=== PATIENT | male | born 1975 | race Caucasian/White ===

== ENCOUNTER 2017-08-02 09:18 | Emergency (ER) | payer OTHER ==
[~2017-08-02] VITALS: Ht 175.3 cm; Wt 76.0 kg
[~2017-08-02 09:18] MED LIST: PLV75 PO
[2017-08-02 09:20] VITALS: PULSE 85; TEMP 36.9; O2SAT 97; Ht 175.3 cm; Wt 76.0 kg
[2017-08-02] MEDS ORDERED: KETOROLAC TROMETHAMINE 60 MG/2 ML VIAL IM STA (10:39)
[2017-08-02] MEDS ORDERED: CYCLOBENZAPRINE HCL 10 MG TAB PO STA (10:39)
[2017-08-02] MEDS ORDERED: OXYCODONE HCL IR 5 MG TAB (IMMEDIATE RELEASE) PO STA (10:39)
[2017-08-02] MEDS ORDERED: METH4PAK PO ×2 (10:46→11:17)
[2017-08-02] MEDS ORDERED: CYCL5TAB PO ×2 (10:46→11:17)
--- NOTE | 2017-08-02 10:48 | EMERGENCY ROOM VISIT NOTE ---
ED Visit Note First contact with patient: 10:23 CHIEF COMPLAINT: Low back pain HISTORY OF PRESENT ILLNESS: This 42-year-old male patient presents to the emergency department, ambulatory, via POV, complaining of pain in the low back which began yesterday evening. The patient states he was bending over to scrub the toilet, he felt a pinch in the back. He states that this point, he knew he was going to be in pain, but kept going and continued working. He states any time he got home, he was having difficulty walking. He did use a heating pad last night, and states he is uncertain if this helped or made things worse. He was having difficulty getting out of bed. He does report a history of chronic low back pain, does have "disc problems". Patient states he was seeing Dr. Richard, but has not seen him in approximately one year. He was on injections, which she states did help. The pain is now constant and worse with movement. The patient notes the pain as sharp and a 9/10. The patient has taken 4 OTC Aleve without relief of the pain. The patient denies any loss of control of their bowel or bladder functions. There has been no leg numbness or weakness, and no change in sensation. No nausea or vomiting or abdominal pain. No chest pain or shortness of breath. The patient has had prior back surgery. No dysuria or increased urinary frequency. REVIEW OF SYSTEMS: A 10 system review of systems was performed with positives and pertinent negatives listed in the history of present illness. All other systems were reviewed and are negative. ALLERGIES: Aspirin MEDICATIONS: None PMH: CVA, chronic back pain SOCIAL HISTORY: The patient lives locally with family. He denies drug, alcohol , tobacco use. PHYSICAL EXAM: VITALS: Vitals are noted on the nurse's note and reviewed by myself. Vital signs stable. GENERAL: This is a 42 year old white male, in no acute distress but in obvious pain, nondiaphoretic, well-developed well-nourished. SKIN: The skin was without rashes, erythema, edema, or bruising. Capillary refill less than 2 seconds. NECK: Supple without nuchal rigidity. No cervical spine tenderness. No paraspinous muscle tenderness. HEART: Regular rate and rhythm without murmurs gallops or rubs. LUNGS: Clear to auscultation bilaterally without wheezes, rales or rhonchi. ABDOMEN: Positive bowel sounds x 4. Normal tympanic percussion. Soft, nontender, without masses or organomegaly. Boyer sign negative. MUSCULOSKELETAL: No muscle atrophy, erythema, or edema noted of the back. There is no tenderness over the lumbar spinous processes. There is moderate tenderness over the paraspinous muscles bilaterally. There is no tenderness over the thoracic spine or paraspinous muscles. There are muscle spasms present. The patient is slow to move around with maximum tenderness with any position changes. He is unable to sit upright. Positive straight leg raise test bilaterally. NEURO: Patient was alert and oriented to person place and time. Normal sensation to light and sharp touch. Deep tendon reflexes 2+ in the lower extremities. Dorsalis pedis pulse 2+ bilaterally. Strength 5/5 and equal in the bilateral lower extremities. EMERGENCY DEPARTMENT COURSE: The patient was seen and evaluated as above. He presents today complaining of significant back pain. There was no "Injury" however the pain did begin while bending over, which has happened to him before. He reports a history of "disc problems" and states he was seeing Dr. Richard for injections, which were helpful. The patient has not had a flare-up of his chronic pain in quite some time. He was given cyclobenzaprine, OxyIR, and Toradol in the ED for his symptoms. He will be discharged with cyclobenzaprine and Medrol Dosepak. I do not feel imaging is necessary at this time, as he did not obtain a specific injury. The patient is in agreement with this plan. He was feeling better at discharge, however, not 100%. Discharge instructions were reviewed and the patient was discharged home in good condition. I attest that I have personally reviewed the patient's current medication list. Patient was found to have normal blood pressure on screening and does not require follow-up. DIFFERENTIAL DIAGNOSIS: Etiologies such as lumbago, sciatica, cauda equina, epidural abscess, osteomyelitis, fracture, aortic disease, metastatic disease, infection, renal colic, gastrointestinal, as well as others were entertained. DIAGNOSIS: Lumbar strain with sciatica Problem List Medical Problems: (1) Chronic back pain Status: Chronic (2) Hepatitis C Status: Chronic Surgical Problems: (1) H/O hemorrhoidectomy Status: Chronic (2) Hx of appendectomy Status: Chronic Current/Historical Medications Scheduled Cyclobenzaprine Hcl (Flexeril), 5 MG PO TID Methylprednisolone (Medrol Dosepak), 0 PO DAILY Allergies Coded Allergies: Aspirin (Verified Adverse Reaction, Intermediate, GI intolerance, 07/16/16 ) INTOLERENCE Vital Signs Date Time Temp Pulse Resp B/P (MAP) Pulse Ox O2 Delivery O2 Flow Rate FiO2 08/02/17 11:05 130/88 08/02/17 09:20 36.9 85 20 121/74 97 Room Air Medications Administered Medications (Trade) Dose Ordered Sig/Damian Route Start Time Stop Time Status Last Admin Dose Admin Ketorolac Tromethamine (Toradol Inj) 60 mg NOW STAT IM 08/02/17 10:39 08/02/17 10:40 DC 08/02/17 10:59 60 MG Cyclobenzaprine HCl (Flexeril Tab) 10 mg NOW STAT PO 08/02/17 10:39 08/02/17 10:40 DC 08/02/17 10:59 10 MG Oxycodone HCl (Roxicodone Immediate Rel Tab) 5 mg NOW STAT PO 08/02/17 10:39 08/02/17 10:40 DC 08/02/17 11:00 5 MG Departure Information Impression Primary Impression: Strain of lumbar region Additional Impression: Chronic low back pain Dispostion Home / Self-Care Condition GOOD Prescriptions Methylprednisolone (MEDROL DOSEPAK) 4 Mg Duane 0 PO DAILY, #1 PKT Prov: Cherelle Poole PA-C 08/02/17 Cyclobenzaprine Hcl (FLEXERIL) 5 Mg Tab 5 MG PO TID, #30 TAB PRN Prov: Cherelle Poole PA-C 08/02/17 Referrals Sanchez Palacio M.D. (MEDICAL) (PCP) Terrance Richard D.O. Patient Instructions ED Neck Back Pain General, Low Back Pain Self Care, Community [facility] Additional Instructions You have been treated in the Emergency Department for Back Pain. You have received pain medicine in the emergency department which impairs your ability to operate a vehicle. It is illegal for you to drive after receiving these medicines. You have been prescribed Flexeril (cyclobenzaprine) 1-2 tabs orally, three times per day. Do NOT exceed 30 mg (6 tabs) per day. Take your first dose at bedtime as it can make you drowsy. Always take all medications as prescribed. You have been prescribed a Medrol Dosepak. This is a steroid which will help decrease your inflammation, redness, and itch. Take the medicine as prescribed. Take the ENTIRE 6 day course of the steroids. For pain control, you can use the following [id number] medicines (if >12 yo): Ibuprofen(Motrin, Advil) may be used for fever or pain. Use 600mg every six hours as needed. Take with food. Avoid using more than 2400mg in a 24 hour period. Do not use 2400mg per day for more than three consecutive days without physician direction. Prolonged inappropriate use can lead to stomach upset or ulcers. Do not take this or other NSAIDs while taking steroids (Medrol dosepak) (AND/OR) Acetaminophen(Tylenol) may be used for fever or pain. Use 1000mg every six hours as needed. Avoid using more than 3000mg in a 24 hour period. If this is an acute injury, ice can be applied to the area of pain for the first 3 days to help decrease pain and inflammation. After the first 3 days, a heating pad can be used over the area for continued soothing relief. You should schedule a follow-up appointment in 2-3 days with your Primary Care Provider/Back surgeon for further evaluation and treatment of your back pain. Return to the Emergency Department if your current symptoms worsen despite treatment course outlined above, or if you develop any of the following symptoms : intractable pain despite aforementioned treatment course, loss of control of your bowel or bladder, numbness or tingling in your groin, or development of a fever. Problem Qualifiers Primary Impression: Strain of lumbar region Encounter type: initial encounter Qualified Codes: S39.012A - Strain of muscle, fascia and tendon of lower back, initial encounter Additional Impression: Chronic low back pain Back pain laterality: bilateral Sciatica presence: with sciatica Sciatica laterality: sciatica of right side Qualified Codes: M54.41 - Lumbago with sciatica, right side; G89.29 - Other chronic pain
[2017-08-02 11:05] VITALS: BP 130/88
== END 2017-08-02 11:26 | disposition home or self-care (01) ==
LOC: C.EDB 09:19 → C.EDA 11:26
DX: S39.012A Strain of muscle, fascia and tendon of lower back, initial encounter (principal); X58.XXXA Exposure to other specified factors, initial encounter; G89.29 Other chronic pain; B19.20 Unspecified viral hepatitis C without hepatic coma; Z86.73 Personal history of transient ischemic attack (TIA), and cerebral infarction without residual deficits; Z98.890 Other specified postprocedural states; Z79.899 Other long term (current) drug therapy; Z88.8 Allergy status to other drugs, medicaments and biological substances